=== PATIENT | female | born 1935 | race Caucasian/White ===

== ENCOUNTER 2017-05-01 12:34 | Inpatient (IN) | payer MEDICARE, BC ==
[~2017-05-01] VITALS: Ht 160 cm; Wt 66.7 kg
[2017-05-01 13:08] LABS: MCH 40.3 pg (26.0-34.0); MCHC 33.7 g/dL (31.0-37.0); MCV 119.5 fL (80.0-100.0); PLATELET COUNT 126 10x3/uL (130-400); RDW 14.8 % (11.5-14.5); WBC 6.2 10x3/uL (4.8-10.8)
[2017-05-01 13:09] LABS: HEMATOCRIT 18.4 % (36.0-48.0); HEMOGLOBIN 6.2 g/dL (12-16); RBC 1.54 10x6/uL (4.00-5.40)
[2017-05-01 13:20] LABS: ALBUMIN 4.1 g/dL (3.4-5.0); ANION GAP 12.7 mmol/L (8-16); BILIRUBIN - TOTAL 1.59 mg/dL (0.2-1.3); CALCIUM 8.7 mg/dL (8.5-10.1); CARBON DIOXIDE 26.4 mmol/L (21.0-32.0); CREATININE - SERUM 0.9 mg/dL (0.6-1.3); POTASSIUM - SERUM 4.1 mmol/L (3.5-5.1); PROTEIN - SERUM 5.8 g/dL (6.4-8.2)
[2017-05-01 13:33] LABS: EOSINOPHILS 1 % (0-7); LYMPHOCYTES 74 % (15-50); MONOCYTES 1 % (2-11); NEUTROPHILS 24 % (40-80); PLATELET ESTIMATE DECREASED
[2017-05-01 13:34] LABS: TEAR DROP CELLS OCC
[2017-05-01 16:10] LABS: APPEARANCE CLEAR (CLEAR); COLOR YELLOW (YELLOW)
[2017-05-01 16:11] LABS: BILIRUBIN NEGATIVE (NEGATIVE); GLUCOSE NEGATIVE (NEGATIVE); KETONE NEGATIVE (NEGATIVE); NITRITE NEGATIVE (NEGATIVE); PROTEIN NEGATIVE (NEGATIVE); UROBILINOGEN NORMAL (NORMAL)
[2017-05-01 16:12] LABS: BACTERIA FEW /hpf (NONE SEEN); RED CELLS - URINE OCC /hpf (0-5); WHITE CELLS - URINE OCC /hpf (0-5)
[2017-05-01] MEDS ORDERED: LEVO-T25 MCG PO (17:54)
[2017-05-01] MEDS ORDERED: OMEPRAZOLE20 M1 PO (17:55)
[2017-05-01 17:58] VITALS: BP 130/79; BMI 26.1
[2017-05-01 20:00] VITALS: BP 139/42
[2017-05-01] MEDS ORDERED: ZITHROMAX250 MG (23:49)
[2017-05-02] VITALS (21 sets, daily range): BP systolic 82–147; BP diastolic 39–94; Ht 160 cm; Wt 66.7 kg
[2017-05-02 05:46] LABS: BASOPHILS 0.1 % (0-2); IMMATURE GRANULOCYTES 0.1 % (0-5); LYMPHOCYTES 84.4 % (15-50); MCH 39.8 pg (26.0-34.0); MCHC 33.6 g/dL (31.0-37.0); MCV 118.8 fL (80.0-100.0); MEAN PLATELET VOLUME 9.9 fL (7.4-10.4); MONOCYTES 1.9 % (2-11); NEUTROPHILS 12.5 % (40-80); PLATELET COUNT 121 10x3/uL (130-400); RDW 14.9 % (11.5-14.5); WBC 6.9 10x3/uL (4.8-10.8)
[2017-05-02 05:48] LABS: HEMATOCRIT 15.2 % (36.0-48.0); HEMOGLOBIN 5.1 g/dL (12-16); RBC 1.28 10x6/uL (4.00-5.40)
[2017-05-02 06:09] LABS: ALBUMIN 3.5 g/dL (3.4-5.0); ANION GAP 13.2 mmol/L (8-16); BILIRUBIN - TOTAL 1.62 mg/dL (0.2-1.3); CALCIUM 8.4 mg/dL (8.5-10.1); CREATININE - SERUM 0.9 mg/dL (0.6-1.3); POTASSIUM - SERUM 4.2 mmol/L (3.5-5.1); PROTEIN - SERUM 5.1 g/dL (6.4-8.2)
[2017-05-02 17:21] LABS: HEMATOCRIT 24.6 % (36.0-48.0); HEMOGLOBIN 8.6 g/dL (12-16)
[2017-05-02 20:28] LABS: HEMATOCRIT 24.9 % (36.0-48.0); HEMOGLOBIN 8.7 g/dL (12-16)
[2017-05-03] VITALS: BP 145/61
[2017-05-03 05:53] VITALS: BP 137/56
[2017-05-03 06:13] LABS: HEMATOCRIT 25.7 % (36.0-48.0); HEMOGLOBIN 8.8 g/dL (12-16)
[2017-05-03 08:07] VITALS: BP 150/52
[2017-05-03 10:25] LABS: HEMATOCRIT 27.9 % (36.0-48.0); HEMOGLOBIN 9.8 g/dL (12-16)
[2017-05-03 12:43] VITALS: BP 130/43
[2017-05-04 09:17] LABS: HAPTOGLOBIN <10 mg/dL (34-200); IMMUNOGLOBULIN G 256 mg/dL (700-1600)
[2017-05-04 14:16] LABS: SPE - A/G RATIO 2.3 (0.7-1.7); SPE - ALBUMIN 3.6 g/dL (2.9-4.4); SPE - ALPHA-1 GLOBULIN 0.2 g/dL (0.0-0.4); SPE - ALPHA-2 GLOBULIN 0.5 g/dL (0.4-1.0); SPE - BETA GLOBULIN 0.6 g/dL (0.7-1.3); SPE - GAMMA GLOBULIN 0.3 g/dL (0.4-1.8); SPE - M-SPIKE Not Observed g/dL (Not Observed); SPE - TOTAL PROTEIN 5.2 g/dL (6.0-8.5)
== END 2017-05-03 17:32 | disposition home or self-care (01) | DRG 841 ==
LOC: D.ER 12:34 → D.MS 15:41
PROVIDERS: Family Medicine; Internal Medicine Hematology & Oncology; Internal Medicine Nephrology
DX: C91.10 Chronic lymphocytic leukemia of B-cell type not having achieved remission (principal); I47.1 Supraventricular tachycardia; D63.8 Anemia in other chronic diseases classified elsewhere; R53.1 Weakness; I34.0 Nonrheumatic mitral (valve) insufficiency; D69.6 Thrombocytopenia, unspecified; E03.9 Hypothyroidism, unspecified; I20.9 Angina pectoris, unspecified